=== PATIENT | female | born 1995 | race Caucasian/White ===

== ENCOUNTER 2016-05-14 19:53 | Emergency (ER) | payer OTHER ==
[2016-05-14 20:06] VITALS: RESP 18
[2016-05-14] MEDS ORDERED: ONDANSETRON 4 MG/2 ML VIAL IVP STA (20:13)
[2016-05-14] MEDS ORDERED: SODIUM CHLORIDE 0.9% 1,000 ML IV ONE (20:13)
[2016-05-14] MEDS ORDERED: KETOROLAC 30 MG/ML 1 ML VIAL IVP STA (20:13)
--- NOTE | 2016-05-14 20:16 | ED ---
General Adult HPI - General Chief complaint: Abdominal Pain Stated complaint: LUQ Pain x3 days Time Seen by Provider: 05/14/16 20:02 Source: patient, RN notes reviewed Mode of arrival: ambulatory Limitations: no limitations - History of Present Illness Initial comments: 20-year-old female presenting for left upper quadrant abdominal pain. Patient states that she has had pain for the past 3 days. She states she also has nausea vomiting and diarrhea. She denies any fevers or chills. She recently did have a Mirena control IUD placed. She states this is not an issue for her. She denies any vaginal discharge or bleeding. She denies any lower abdominal pain. She denies any significant medical history. - Related Data Previous Rx's Medication Instructions Recorded Ibuprofen [Motrin] 800 mg PO Q8HR PRN #21 tab 05/14/16 Ondansetron Odt [Zofran Odt] 4 mg PO Q8HR PRN #12 tab 05/14/16 Ranitidine HCl [Zantac] 150 mg PO BID #14 tab 05/14/16 Allergies Allergy/AdvReac Type Severity Reaction Status Date / Time peanut [Peanut Butter] Allergy Anaphylaxis Verified 05/14/16 20:22 peanut oil Allergy Rash/Hives Verified 05/14/16 20:22 tree nut [Nut] Allergy Rash/Hives Verified 05/14/16 20:22 atomoxetine HCl AdvReac Headache Verified 05/14/16 20:22 [From Ray] Review of Systems ROS Statement: Those systems with pertinent positive or pertinent negative responses have been documented in the HPI. Constitutional: No fevers. No chills. No change in appetite. No unexpected weight loss. Eyes: No visual changes. No eye pain. No sensitivity to light. HENT: No sinus pressure. No ear pain. No hearing changes. No epistaxis. No sore throat. Respiratory: No cough. No SOB. No wheezing. Cardiovascular: No chest pain. No palpitations. No lower extremity edema. Abdomen: Positive abdominal pain. Positive nausea and vomiting and diarrhea. Genitourinary: No dysuria. No hematuria. No difficulty urinating. No flank pain. Musculoskeletal: No injury. No back pain. No myalgias. Skin: No rash. No lesions. No lacerations. Neuro: No gross strength deficits. No LOC. No seizures. No headache. Psych: No confusion. No memory changes. No anxiety/depression. ROS Other: All systems not noted in ROS Statement are negative. Past Medical History Past Medical History: Asthma Additional Past Medical History / Comment(s): Concussion, Migraines, anemia, enlarged spleen History of Any Multi-Drug Resistant Organisms: None Reported Past Surgical History: Adenoidectomy, Tonsillectomy Additional Past Surgical History / Comment(s): Cyst out of left shoulder Past Psychological History: Anxiety, Depression Smoking Status: Former smoker Past Alcohol Use History: None Reported Past Drug Use History: None Reported General Exam - General Exam Comments Initial Comments: General: Awake and Alert. No acute distress. Does not appear acutely ill. Obese. Eyes: SAILAJA, EOM intact. No nystagmus. No scleral icterus. HENT: Atraumatic, normocephalic. Mucous membranes moist. Trachea midline. Neck: The neck is supple, there is no tenderness or JVD. Cardiovascular: Regular rate and rhythm. No murmur, rub, or gallop is appreciated. Distal pulses intact. Respiratory: Lungs are clear to auscultation bilaterally. No wheezes, rales, rhonchi. No respiratory distress. Gastrointestinal: Soft, mild left upper quadrant tenderness. No rebound or guarding. Non-distended. No masses or organomegaly noted. No CVA tenderness. Musculoskeletal: No tenderness. Normal ROM. No gross deformity. No strength deficits. Neurological: A&Ox3. CN II-XII grossly intact, There are no obvious motor or sensory deficits. Coordination appears grossly intact. Speech is normal. Skin: Skin is warm and dry and no rashes or lesions are noted. Psychiatric: Cooperative, appropriate mood & affect, normal judgment. Limitations: no limitations Course Vital Signs 05/14/16 05/14/16 20:05 21:28 Temperature 98.2 F 98.1 F Pulse Rate 86 96 Respiratory 18 18 Rate Blood Pressure 147/63 111/62 O2 Sat by Pulse 99 100 Oximetry Medical Decision Making - Medical Decision Making 20-year-old female presenting for left upper quadrant abdominal pain and N/V/D. Abdominal exam with left upper quadrant tenderness but without rebound or guarding or evidence of acute peritonitis. Given her active nausea vomiting diarrhea symptoms this is likely consistent with gastroenteritis. Patient was given medications for pain and nausea and IV fluids with improvement of her symptoms on reevaluation. Lab work was performed was grossly stable findings. She does state history of anemia. UA without convincing evidence of infection setting of significant squamous contamination and no active dysuria. Lower suspicion for acute intra-abdominal process at this time, and does not appear to require any imaging studies at this time. Discussed symptomatic management and staying well-hydrated with patient. Discussed concerning signs and symptoms requiring immediate return to the ED. Discussed close follow-up with PCP for reevaluation for her abdominal pain. Patient is agreeable with plan of discharge home. - Lab Data Result diagrams: 05/14/16 20:36 05/14/16 20:36 Lab Results 05/14/16 05/14/16 05/14/16 Range/Units 20:36 20:36 20:36 WBC 7.3 (4.0-11.0) k/uL RBC 6.09 H (3.80-5.40) m/uL Hgb 11.1 L (11.4-16.0) gm/dL Hct 39.0 (34.0-46.0) % MCV 63.9 L (80.0-100.0) fL MCH 18.3 L (25.0-35.0) pg MCHC 28.6 L (31.0-37.0) g/dL RDW 15.7 H (11.5-15.5) % Plt Count 238 (150-450) k/uL Neutrophils % 60 % Lymphocytes % 28 % Monocytes % 8 % Eosinophils % 2 % Basophils % 1 % Neutrophils # 4.4 (1.3-7.7) k/uL Lymphocytes # 2.0 (1.0-4.8) k/uL Monocytes # 0.6 (0-1.0) k/uL Eosinophils # 0.1 (0-0.7) k/uL Basophils # 0.0 (0-0.2) k/uL Hypochromasia Marked Microcytosis Marked Sodium 142 (137-145) mmol/L Potassium 3.9 (3.5-5.1) mmol/L Chloride 107 (98-107) mmol/L Carbon Dioxide 25 (22-30) mmol/L Anion Gap 10 mmol/L BUN 7 (7-17) mg/dL Creatinine 0.56 (0.52-1.04) mg/dL Est GFR (MDRD) Af Amer >60 (>60 ml/min/1.73 sqM) Est GFR (MDRD) Non-Af >60 (>60 ml/min/1.73 sqM) Glucose 87 (74-99) mg/dL Calcium 9.5 (8.4-10.2) mg/dL Total Bilirubin 0.5 (0.2-1.3) mg/dL AST 16 (14-36) U/L ALT 26 (9-52) U/L Alkaline Phosphatase 70 (38-126) U/L Total Protein 7.0 (6.3-8.2) g/dL Albumin 4.3 (3.5-5.0) g/dL Lipase 105 (23-300) U/L Urine Color Urine Appearance (Clear) Urine pH (5.0-8.0) Ur Specific Sheldahl (1.001-1.035) Urine Protein (Negative) Urine Glucose (UA) (Negative) Urine Ketones (Negative) Urine Blood (Negative) Urine Nitrate (Negative) Urine Bilirubin (Negative) Urine Urobilinogen (<2.0) mg/dL Ur Leukocyte Esterase (Negative) Urine WBC (0-5) /hpf Urine WBC Clumps (None) /hpf Ur Squamous Epith Cells (0-4) /hpf Amorphous Sediment (None) /hpf Urine Bacteria (None) /hpf Urine Mucus (None) /hpf Urine HCG, Qual Not Detected (Not Detectd) 05/14/16 Range/Units 20:36 WBC (4.0-11.0) k/uL RBC (3.80-5.40) m/uL Hgb (11.4-16.0) gm/dL Hct (34.0-46.0) % MCV (80.0-100.0) fL MCH (25.0-35.0) pg MCHC (31.0-37.0) g/dL RDW (11.5-15.5) % Plt Count (150-450) k/uL Neutrophils % % Lymphocytes % % Monocytes % % Eosinophils % % Basophils % % Neutrophils # (1.3-7.7) k/uL Lymphocytes # (1.0-4.8) k/uL Monocytes # (0-1.0) k/uL Eosinophils # (0-0.7) k/uL Basophils # (0-0.2) k/uL Hypochromasia Microcytosis Sodium (137-145) mmol/L Potassium (3.5-5.1) mmol/L Chloride (98-107) mmol/L Carbon Dioxide (22-30) mmol/L Anion Gap mmol/L BUN (7-17) mg/dL Creatinine (0.52-1.04) mg/dL Est GFR (MDRD) Af Amer (>60 ml/min/1.73 sqM) Est GFR (MDRD) Non-Af (>60 ml/min/1.73 sqM) Glucose (74-99) mg/dL Calcium (8.4-10.2) mg/dL Total Bilirubin (0.2-1.3) mg/dL AST (14-36) U/L ALT (9-52) U/L Alkaline Phosphatase (38-126) U/L Total Protein (6.3-8.2) g/dL Albumin (3.5-5.0) g/dL Lipase (23-300) U/L Urine Color Yellow Urine Appearance Cloudy H (Clear) Urine pH 7.5 (5.0-8.0) Ur Specific [place] 1.010 (1.001-1.035) Urine Protein Negative (Negative) Urine Glucose (UA) Negative (Negative) Urine Ketones Negative (Negative) Urine Blood Negative (Negative) Urine Nitrate Negative (Negative) Urine Bilirubin Negative (Negative) Urine Urobilinogen 2.0 (<2.0) mg/dL Ur Leukocyte Esterase Negative (Negative) Urine WBC 5 (0-5) /hpf Urine WBC Clumps Few H (None) /hpf Ur Squamous Epith Cells 26 H (0-4) /hpf Amorphous Sediment Rare H (None) /hpf Urine Bacteria Many H (None) /hpf Urine Mucus Rare H (None) /hpf Urine HCG, Qual (Not Detectd) Disposition Clinical Impression: Nonspecific abdominal pain, Nausea and vomiting Disposition: HOME SELF-CARE Condition: Stable Instructions: Abdominal Pain (ED), Gastroenteritis (ED) Prescriptions: Ibuprofen [Motrin] 800 mg PO Q8HR PRN #21 tab PRN Reason: Pain Ondansetron Odt [Zofran Odt] 4 mg PO Q8HR PRN #12 tab PRN Reason: Nausea Ranitidine HCl [Zantac] 150 mg PO BID #14 tab Referrals: Willam Ibarra MD [Primary Care Provider] - 1-2 days Time of Disposition: 21:19
[2016-05-14 20:50] LABS: Basophils % (A) 1 %; CH 18.9; CHCM 29.7; Eosinophils # (A) 0.1 k/uL (0-0.7); Eosinophils % (A) 2 %; HDW 3.18; HGB 11.1 gm/dL (11.4-16.0); Hypochromasia Marked; Luc # (Auto) 0.15; Luc % (Auto) 2; Lymphocytes % (A) 28 %; MCH 18.3 pg (25.0-35.0); MCHC 28.6 g/dL (31.0-37.0); MCV 63.9 fL (80.0-100.0); Microcytosis Marked; Monocytes # (A) 0.6 k/uL (0-1.0); Monocytes % (A) 8 %; Neutrophils # (A) 4.4 k/uL (1.3-7.7); Neutrophils % (A) 60 %; RBC 6.09 m/uL (3.80-5.40); RBC Fragment Flag Slight; RDW 15.7 % (11.5-15.5); WBC 7.3 k/uL (4.0-11.0)
[2016-05-14 20:56] LABS: Amorphous Sediment,Urine Rare /hpf; Appearance,Urine Cloudy (Clear); Bacteria,Urine Many /hpf; Bilirubin,Urine Negative (Negative); Glucose,Urine (UA) Negative (Negative); Ketones,Urine Negative (Negative); Leukocyte Esterase,Urine Negative (Negative); Mucus,Urine Rare /hpf; Nitrite,Urine Negative (Negative); PH, Urine 7.5 (5.0-8.0); Particle Count 19492; Protein,Urine Negative (Negative); Squamous Epithelial Cell,Urine 26 /hpf (0-4); UA Billing (MACRO vs. MICRO) MICRO; WBC,Urine 5 /hpf (0-5)
[2016-05-14 20:58] LABS: ALT 26 U/L (9-52); AST 16 U/L (14-36); Alkaline Phosphatase 70 U/L (38-126); Anion Gap 10 mmol/L; Blood Urea Nitrogen 7 mg/dL (7-17); Calcium 9.5 mg/dL (8.4-10.2); Carbon Dioxide 25 mmol/L (22-30); Chloride 107 mmol/L (98-107); Glucose 87 mg/dL (74-99); Non-African American GFR(MDRD) >60 (>60 ml/min/1.73 sqM); Potassium 3.9 mmol/L (3.5-5.1); Sodium 142 mmol/L (137-145); Total Bilirubin 0.5 mg/dL (0.2-1.3)
[2016-05-14 21:32] VITALS: BP 111/62; PULSE 96; TEMP 98.1
== END 2016-05-14 21:28 | disposition home or self-care (01) ==
LOC: EC 19:53
DX: R11.2 Nausea with vomiting, unspecified (principal); R19.7 Diarrhea, unspecified; Z88.8 Allergy status to other drugs, medicaments and biological substances; Z87.891 Personal history of nicotine dependence; Z91.018 Allergy to other foods; Z91.010 Allergy to peanuts
CPT/HCPCS: 99283; 96374; 96375; 96361; 36415; 80053; 83690; 85025; 81001; 81025; J2405; J1885

== ENCOUNTER 2016-05-30 16:52 | Emergency (ER) | payer OTHER ==
[2016-05-30 17:06] VITALS: BP 126/82; PULSE 18; RESP 16; TEMP 99
--- NOTE | 2016-05-30 17:16 | ED ---
Headache HPI - General Chief Complaint: Headache Stated Complaint: Headache Time Seen by Provider: 05/30/16 17:09 Source: RN notes reviewed Mode of arrival: ambulatory Limitations: no limitations - History of Present Illness Initial Comments: Patient is a 20-year-old female with a chief complaint of a migraine headache for the past 3 weeks. Patient reports she's taken multiple medications including Excedrin, Tylenol and Motrin however does not help. Patient reports that taken anything for migraine in the past 24 hours. Patient reports that she has not taking pills. Patient states that she did have some lightheadedness today and a blurriness to her vision. Patient reports that her vision became blurry for only a few seconds and then stop. Patient reports that her headache is worse with bright lights and loud noises. Patient states that she does not take any chronic migraine medications at this time. She denies any neurological deficits, peripheral paresthesias, or altered mental status. She reports that she did feel little nauseated. She denies any vomiting. Patient denies any recent fever, chills, shortness of breath, chest pain, back pain, abdominal pain, numbness or tingling, dysuria or hematuria, constipation or diarrhea,or visual changes, or any other current symptoms - Related Data Previous Rx's Medication Instructions Recorded Ibuprofen [Motrin] 800 mg PO Q8HR PRN #21 tab 05/14/16 Ondansetron Odt [Zofran Odt] 4 mg PO Q8HR PRN #12 tab 05/14/16 Ranitidine HCl [Zantac] 150 mg PO BID #14 tab 05/14/16 Butalb/Acetaminophen/Caffeine 1 - 2 cap PO Q4HR #10 cap 05/30/16 [Fioricet 50-300-40 mg Capsule] Allergies Allergy/AdvReac Type Severity Reaction Status Date / Time peanut [Peanut Butter] Allergy Anaphylaxis Verified 05/14/16 20:22 peanut oil Allergy Rash/Hives Verified 05/14/16 20:22 tree nut [Nut] Allergy Rash/Hives Verified 05/14/16 20:22 atomoxetine HCl AdvReac Headache Verified 05/14/16 20:22 [From Strattera] Review of Systems ROS Statement: Those systems with pertinent positive or pertinent negative responses have been documented in the HPI. ROS Other: All systems not noted in ROS Statement are negative. Past Medical History Past Medical History: Asthma Additional Past Medical History / Comment(s): Concussion, Migraines, anemia, enlarged spleen History of Any Multi-Drug Resistant Organisms: None Reported Past Surgical History: Adenoidectomy, Tonsillectomy Additional Past Surgical History / Comment(s): Cyst out of left shoulder Past Psychological History: Anxiety, Depression Smoking Status: Former smoker Past Alcohol Use History: None Reported Past Drug Use History: None Reported General Exam - General Exam Comments Initial Comments: Is a pleasant 20-year-old female. She does not appear to be in any acute distress. Limitations: no limitations General appearance: alert, in no apparent distress Head exam: Present: atraumatic, normocephalic, normal inspection Eye exam: Present: normal appearance, PERRL, EOMI. Absent: scleral icterus, conjunctival injection, periorbital swelling ENT exam: Present: normal exam, mucous membranes moist Neck exam: Present: normal inspection. Absent: tenderness, meningismus, lymphadenopathy Respiratory exam: Present: normal lung sounds bilaterally. Absent: respiratory distress, wheezes, rales, rhonchi, stridor Cardiovascular Exam: Present: regular rate, normal rhythm, normal heart sounds. Absent: systolic murmur, diastolic murmur, rubs, gallop, clicks GI/Abdominal exam: Present: soft, normal bowel sounds. Absent: distended, tenderness, guarding, rebound, rigid Extremities exam: Present: normal inspection, full ROM, normal capillary refill. Absent: tenderness, pedal edema, joint swelling, calf tenderness Back exam: Present: normal inspection Neurological exam: Present: alert, oriented X3, CN II-XII intact Expanded Patient oriented to: Present: person, place, time Speech: Present: fluid speech Cranial nerves: EOM's Intact: Normal, Gag Reflex: Normal, Tongue Deviation: Normal Cerebellar function: Finger to Nose: Normal Upper motor neuron: Juan Miguel Neglect: Normal Sensory exam: Upper Extremity Light Touch: Normal, Lower Extremity Light Touch: Normal Motor strength exam: RUE: 5, LUE: 5, RLE: 5, LLE: 5 Eye Response: (4) open spontaneously Motor Response: (6) obeys commands Verbal Response: (5) oriented Psychiatric exam: Present: normal affect, normal mood Skin exam: Present: warm, dry, intact, normal color. Absent: rash Course Vital Signs 05/30/16 17:03 Temperature 99.0 F Pulse Rate 18 L Respiratory 16 Rate Blood Pressure 126/82 O2 Sat by Pulse 99 Oximetry Medical Decision Making - Medical Decision Making Patient is a 20-year-old female with a chief complaint of a headache for approximately 3 weeks. She reports that will come and go and she's taking her Motrin, Tylenol and Excedrin. Patient reports that she has history of chronic migraines. Patient is alert and oriented has no neurological deficits this time. Patient was given IM Toradol, Benadryl and by mouth Zofran in Antivert. Patient advised to follow-up with primary care provider. Patient understands treatment plan will comply. Return parameters were discussed. Patient has no neurological deficits at this time and no further studies or imaging is necessary. Patient reports that she has relief after the IM medications. Patient understands return parameters. Disposition Clinical Impression: Headache Disposition: HOME SELF-CARE Condition: Good Instructions: Acute Headache (ED) Additional Instructions: Patient started to remain hydrated. Take migraine medication as directed. Rest , and return to the [facility] if any alarming signs or symptoms occur. Prescriptions: Butalb/Acetaminophen/Caffeine [Fioricet 50-300-40 mg Capsule] 1 - 2 cap PO Q4HR #10 cap Referrals: Willam Ibarra MD [Primary Care Provider] - 1-2 days Time of Disposition: 17:35
[2016-05-30] MEDS ORDERED: KETOROLAC 60 MG/2 ML VIAL IM STA (17:21)
[2016-05-30] MEDS ORDERED: ONDANSETRON 4 MG ODT STARTER PACK 2 TAB BTL PO STA (17:22)
[2016-05-30] MEDS ORDERED: diphenhydrAMINE 50 MG/ML 1 ML VIAL IM STA (17:22)
[2016-05-30] MEDS ORDERED: MECLIZINE 12.5 MG TAB PO STA (17:23)
== END 2016-05-30 17:38 | disposition home or self-care (01) ==
LOC: EC 16:52
DX: R51 Headache (principal); Z79.899 Other long term (current) drug therapy; Z88.8 Allergy status to other drugs, medicaments and biological substances; Z87.891 Personal history of nicotine dependence
CPT/HCPCS: 99283; 96372; J1200; J1885; S0119

== ENCOUNTER 2016-10-19 02:46 | Emergency (ER) | payer OTHER ==
[2016-10-19 02:53] VITALS: TEMP 97.9
[2016-10-19] MEDS ORDERED: predniSONE 20 MG TAB PO STA (03:09)
[2016-10-19] MEDS ORDERED: diphenhydrAMINE 50 MG/ML 1 ML VIAL IVP STA (03:09)
[2016-10-19] MEDS ORDERED: FAMOTIDINE 20 MG/2 ML VIAL IV STA (03:09)
--- NOTE | 2016-10-19 04:04 | ED ---
Allergic Reaction HPI - General Chief complaint: Allergic Reaction Stated complaint: Possible allergic reaction Time Seen by Provider: 10/19/16 03:05 Source: patient Mode of arrival: ambulatory Limitations: no limitations - History of Present Illness Initial Comments: This patient is a 20-year-old woman who presents with the feeling that she is having an ALLERGIC reaction. Patient states that she is having some itching to the face and throat area. She states that she has peanut ALLERGY and although she did not knowingly consume any peanut or not products, she is concerned she may been exposed by someone in her household. She did take some Benadryl. The patient is not having cough, wheezing, tongue or lip swelling. No rash. MD Complaint: allergic reaction -: hour(s) Exposure: unknown Symptoms: itching, hoarseness Severity: mild Treatment Prior to Arrival: benadryl Previous Allergy History: other (Urticaria) - Related Data Previous Rx's Medication Instructions Recorded Famotidine [Pepcid] 20 mg PO BID #14 tablet 10/19/16 predniSONE 60 mg PO DAILY #30 tab 10/19/16 Allergies Allergy/AdvReac Type Severity Reaction Status Date / Time peanut [Peanut Butter] Allergy Anaphylaxis Verified 05/14/16 20:22 peanut oil Allergy Rash/Hives Verified 05/14/16 20:22 tree nut [Nut] Allergy Rash/Hives Verified 05/14/16 20:22 atomoxetine HCl AdvReac Headache Verified 05/14/16 20:22 [From Strattera] Review of Systems ROS Statement: Those systems with pertinent positive or pertinent negative responses have been documented in the HPI. ROS Other: All systems not noted in ROS Statement are negative. Constitutional: Denies: fever ENT: Denies: throat pain, congestion Respiratory: Denies: cough, dyspnea, wheezes, stridor Cardiovascular: Denies: chest pain, syncope Gastrointestinal: Denies: abdominal pain, vomiting, diarrhea Skin: Denies: rash Neurological: Denies: headache, weakness, numbness Psychiatric: Reports: anxiety Past Medical History Past Medical History: Asthma Additional Past Medical History / Comment(s): Concussion, Migraines, anemia, enlarged spleen History of Any Multi-Drug Resistant Organisms: None Reported Past Surgical History: Adenoidectomy, Tonsillectomy Additional Past Surgical History / Comment(s): Cyst out of left shoulder Past Psychological History: Anxiety, Depression Smoking Status: Former smoker Past Alcohol Use History: None Reported Past Drug Use History: None Reported General Exam Limitations: no limitations General appearance: alert, in no apparent distress Head exam: Present: atraumatic, normocephalic ENT exam: Present: normal oropharynx, mucous membranes moist Neck exam: Present: normal inspection Respiratory exam: Present: normal lung sounds bilaterally. Absent: respiratory distress, wheezes, rales, rhonchi, stridor Cardiovascular Exam: Present: regular rate, normal rhythm, normal heart sounds. Absent: systolic murmur, diastolic murmur, rubs, gallop GI/Abdominal exam: Present: soft. Absent: distended, tenderness, guarding, rebound Extremities exam: Present: normal inspection, normal capillary refill. Absent: pedal edema, calf tenderness Neurological exam: Present: alert Skin exam: Present: warm, dry, intact, normal color. Absent: rash Course Vital Signs 10/19/16 10/19/16 02:50 04:11 Temperature 97.9 F Pulse Rate 85 70 Respiratory 20 16 Rate Blood Pressure 129/91 106/59 O2 Sat by Pulse 100 Oximetry Medical Decision Making - Medical Decision Making Patient is 20-year-old woman with history of peanut ALLERGY presenting with some itching. She was given antihistamines and steroid and has had no further progression of symptoms and is feeling better and requesting discharge. Discussed return parameters and appropriate follow-up. Disposition Clinical Impression: Allergic reaction Disposition: HOME SELF-CARE Condition: Good Instructions: General Allergic Reaction (ED) Prescriptions: Famotidine [Pepcid] 20 mg PO BID #14 tablet predniSONE 60 mg PO DAILY #30 tab Referrals: Willam Iabrra MD [Primary Care Provider] - 1-2 days
[2016-10-19 04:12] VITALS: BP 106/59; PULSE 70; RESP 16
== END 2016-10-19 04:11 | disposition home or self-care (01) ==
LOC: EC 02:46
DX: T78.49XA Other allergy, initial encounter (principal); F41.9 Anxiety disorder, unspecified; Z88.8 Allergy status to other drugs, medicaments and biological substances; Z91.010 Allergy to peanuts; Z91.018 Allergy to other foods; Z87.891 Personal history of nicotine dependence
CPT/HCPCS: 99283; 96374; 96375; J1200; J7512

== ENCOUNTER 2016-10-23 20:23 | Emergency (ER) | payer OTHER ==
[2016-10-23] MEDS ORDERED: methylPREDNISolone SOD SUCCI 125 MG/2 ML VIAL IV STA (20:36)
[2016-10-23] MEDS ORDERED: diphenhydrAMINE 50 MG/ML 1 ML VIAL IVP STA (20:36)
[2016-10-23] MEDS ORDERED: FAMOTIDINE 20 MG/2 ML VIAL IV STA (20:36)
[2016-10-23] MEDS ORDERED: SODIUM CHLORIDE 0.9% 1,000 ML IV ONE (20:36)
--- NOTE | 2016-10-23 20:42 | ED ---
Allergic Reaction HPI - General Chief complaint: Allergic Reaction Stated complaint: allergic reaction/peanuts Source: patient Mode of arrival: ambulatory Limitations: no limitations - History of Present Illness Initial Comments: Patient is a 20 old female presents for evaluation for rash to her left upper chest tongue itching and lip itching. Past medical history as below. Patient has a severe ALLERGY to peanuts. Her friend went into [facility] which apparently has peanuts everywhere. She came in contact with some of the peanut shells and then touched the patient's [place]. The patient then touched her left upper chest and face and shortly after developed her symptoms. Her symptoms have progressively been worsening over the last 45 minutes. She does not feel like her throat is closing up. She is not wheezing at this time. She states that she has some mild nausea. She has never been intubated for an ALLERGIC reaction before in the past. Otherwise denies fever, chills, headache and changes of vision, URI symptoms, chest pain, cough, vomiting, diarrhea, pain or burning with urination. - Related Data Previous Rx's Medication Instructions Recorded EPINEPHrine (Auto Inject) [Epipen] 0.3 mg IM ONCE PRN #1 syringe 10/23/16 Allergies Allergy/AdvReac Type Severity Reaction Status Date / Time peanut [Peanut Butter] Allergy Anaphylaxis Verified 10/23/16 21:20 peanut oil Allergy Rash/Hives Verified 10/23/16 21:20 tree nut [Nut] Allergy Rash/Hives Verified 10/23/16 21:20 atomoxetine HCl AdvReac Headache Verified 10/23/16 21:20 [facility] Review of Systems ROS Statement: Those systems with pertinent positive or pertinent negative responses have been documented in the HPI. ROS Other: All systems not noted in ROS Statement are negative. Past Medical History Past Medical History: Asthma Additional Past Medical History / Comment(s): Concussion, Migraines, anemia, enlarged spleen History of Any Multi-Drug Resistant Organisms: None Reported Past Surgical History: Adenoidectomy, Tonsillectomy Additional Past Surgical History / Comment(s): Cyst out of left shoulder Past Psychological History: Anxiety, Depression Smoking Status: Former smoker Past Alcohol Use History: None Reported Past Drug Use History: None Reported General Exam Limitations: no limitations General appearance: alert, in no apparent distress, other Head exam: Present: atraumatic, normocephalic, normal inspection Eye exam: Present: normal appearance, PERRL, EOMI. Absent: scleral icterus, conjunctival injection, periorbital swelling ENT exam: Present: normal exam, mucous membranes moist, other (Posterior oropharynx is clear. No swelling to the tongue or lips. ) Neck exam: Present: normal inspection, other (No cervical lymphadenopathy). Absent: tenderness, meningismus, lymphadenopathy Respiratory exam: Present: normal lung sounds bilaterally, other (Clear bilaterally without wheezes rales or rhonchi. No tachypnea. No hypoxia. No conversational dyspnea.). Absent: respiratory distress, wheezes, rales, rhonchi , stridor Cardiovascular Exam: Present: regular rate, normal rhythm, normal heart sounds. Absent: systolic murmur, diastolic murmur, rubs, gallop, clicks GI/Abdominal exam: Present: soft, normal bowel sounds. Absent: distended, tenderness, guarding, rebound, rigid Extremities exam: Present: normal inspection, full ROM, normal capillary refill. Absent: tenderness, pedal edema, joint swelling, calf tenderness Back exam: Present: normal inspection Neurological exam: Present: alert, oriented X3, CN II-XII intact Psychiatric exam: Present: normal affect, normal mood Skin exam: Present: warm, dry, intact, normal color, urticaria, other (Mild uric area to the left upper chest and left neck.). Absent: rash Course Vital Signs 10/23/16 10/23/16 20:24 21:04 Temperature 98.1 F Pulse Rate 101 H 95 Respiratory 16 20 Rate Blood Pressure 132/77 131/74 O2 Sat by Pulse 100 100 Oximetry Medical Decision Making - Medical Decision Making Patient is a 20-year-old female who came in contact with some peanut oil and believes that she is having ALLERGIC reaction. She has urticaria to the left upper chest. Airway is intact. We'll order Benadryl, famotidine, Solu-Medrol, IV fluids. 2144: Reevaluated the patient. Urticaria has resolved. She states that she has some mild itching to her face. Feels better. Will reassess after completion of fluid bolus. 2229: Reevaluated the patient. She states that she is much improved. No longer having any symptoms. Asked patient if she has any EpiPen at home and she stated that her EpiPen's were recalled. We'll discharge home with 3 EpiPen' s (1 for home, one for work, one for travel). Instructed to avoid peanuts. Discussed signs and symptoms on when to return to the emergency department for further evaluation. Comfortable discharge home and will follow-up with her primary care physician as needed. - Lab Data Lab Results 10/23/16 Range/Units 21:57 Urine HCG, Qual Not Detected (Not Detectd) Disposition Clinical Impression: Allergic reaction Disposition: HOME SELF-CARE Condition: Good Instructions: Food Allergy (ED) Prescriptions: EPINEPHrine (Auto Inject) [Epipen] 0.3 mg IM ONCE PRN #1 syringe PRN Reason: Anaphylaxis Referrals: Willam Ibarra MD [Primary Care Provider] - 1-2 days
[2016-10-23 21:05] VITALS: PULSE 95; RESP 20
[2016-10-23 22:44] VITALS: BP 115/79; TEMP 98.2
== END 2016-10-23 22:51 | disposition home or self-care (01) ==
LOC: EC 20:23
DX: L50.0 Allergic urticaria (principal); Z87.891 Personal history of nicotine dependence; Z91.018 Allergy to other foods; Z91.010 Allergy to peanuts; Z88.8 Allergy status to other drugs, medicaments and biological substances
CPT/HCPCS: 81025; 99283; 96374; 96375 ×2; 96361; J1200; J2930

== ENCOUNTER 2016-11-08 20:29 | Emergency (ER) | payer OTHER ==
[2016-11-08 20:37] VITALS: BP 128/78; PULSE 99; RESP 18; TEMP 98.9
[2016-11-08] MEDS ORDERED: BUTALB/APAP/CAFF 50-325-40MG TAB PO STA (21:08)
[2016-11-08] MEDS ORDERED: ONDANSETRON 4 MG ODT STARTER PACK 2 TAB BTL PO STA (21:09)
--- NOTE | 2016-11-08 21:14 | ED ---
General Adult HPI - General Chief complaint: Headache Stated complaint: headache x 10days Time Seen by Provider: 11/08/16 20:50 Source: patient, RN notes reviewed, old records reviewed Mode of arrival: ambulatory Limitations: no limitations - History of Present Illness Initial comments: Chief complaint and history of present illness a 21-year-old female who has frequent recurrent migraine type headaches. She has seen neurologists in the past and has been on Flexeril and has had steroid shots in her neck. Patient reports having had an injury when she was 14 when she fell off a jungle gym. The patient was recently seen at [facility] given her tramadol and Reglan. Patient reports she has some tingling to her left arm. Headache is on the left side of her head. No photophobia. Mild nausea no vomiting. Patient does not appear uncomfortable. - Related Data Previous Rx's Medication Instructions Recorded EPINEPHrine (Auto Inject) [Epipen] 0.3 mg IM ONCE PRN #1 syringe 10/23/16 Butalb/Acetaminophen/Caffeine 1 cap PO Q4HR #10 cap 11/08/16 [Fioricet 50-300-40 mg Capsule] Ondansetron Odt [Zofran Odt] 4 mg PO Q8HR PRN #10 tab 11/08/16 Allergies Allergy/AdvReac Type Severity Reaction Status Date / Time peanut [Peanut Butter] Allergy Anaphylaxis Verified 11/08/16 20:37 peanut oil Allergy Rash/Hives Verified 11/08/16 20:37 tree nut [Nut] Allergy Rash/Hives Verified 11/08/16 20:37 atomoxetine HCl AdvReac Headache Verified 11/08/16 20:37 [From [facility]] Review of Systems ROS Statement: Those systems with pertinent positive or pertinent negative responses have been documented in the HPI. review of systems no visual acuity changes left-sided headache ongoing for several days. This is common for her headaches that she is to have headaches the last week at a time. Patient's not complaining of any meningismus or stiff neck. No chest pain shortness breath GI/ problems neuro deficits none except for a sensation of some tingling in her left arm. no drift able to open and close her fingers with good dexterity. Neurovascular appears intact. All systems are reviewed. Past medical problems asthmaSports induced. Concussion as noted above. Frequent migraines. The patient surgeries tonsils, adenoids and a cyst on the left shoulder. Family history mother had breast cancer. Patient has ALLERGIES to peanuts. Tree nuts and Strattera. Patient denies smoking drinks alcohol occasionally socially. ROS Other: All systems not noted in ROS Statement are negative. Past Medical History Past Medical History: Asthma Additional Past Medical History / Comment(s): Concussion, Migraines, anemia, enlarged spleen History of Any Multi-Drug Resistant Organisms: None Reported Past Surgical History: Adenoidectomy, Tonsillectomy Additional Past Surgical History / Comment(s): Cyst out of left shoulder Past Psychological History: Anxiety, Depression Smoking Status: Former smoker Past Alcohol Use History: None Reported Past Drug Use History: None Reported General Exam - General Exam Comments Initial Comments: General: The patient is awake and alert, in no distress, and does not appear acutely ill. does not appear acutely uncomfortable. Reports she has a left-sided headache ongoing for several days not a week. Mild discomfort or tingling to her left arm with full range of motion. Vital signs show temp 98.9 pulse 99 respiratory rate 18 pulse ox 90% room air is 98/78. Eye: Pupils are equal, round and reactive to light, extra-ocular movements are intact ; there is normal conjunctiva bilaterally. No signs of icterus. Ears, nose, mouth and throat: There are moist mucous membranes and no oral lesions. Neck: The neck is supple, there is no tenderness , no anterior cervical lymphadenopathy, no meningismus no stiff neck. Cardiovascular: There is a regular rate and rhythm. No murmur, rub or gallop is appreciated. Respiratory: Lungs are clear to auscultation, respirations are non-labored, breath sounds are equal. No wheezes, stridor, rales, or rhonchi. Gastrointestinal: Soft, non-distended, non-tender abdomen without masses or organomegaly noted. There is no rebound or guarding present. No CVA tenderness. Bowel sounds are unremarkable.mild nausea but no vomiting. Back: There is no tenderness to palpation in the midline. There is no obvious deformity. No rashes noted. Musculoskeletal: Normal ROM, no tenderness, There is no pedal edema. There is no calf tenderness or swelling. Sensation intact. Pulses equal bilaterally 2+. Neurological: CN II-XII intact, There are no obvious motor or sensory deficits. Coordination appears grossly intact. Speech is normal.no focal or lateralizing findings. Subjective complaint of some tingling to her left arm but no decrease in function. Skin: Skin is warm and dry and no rashes or lesions are noted. Psychiatric: Cooperative, appropriate mood & affect, normal judgment. no complaint of any anxiety or depression Limitations: no limitations Course Vital Signs 11/08/16 20:34 Temperature 98.9 F Pulse Rate 99 Respiratory 18 Rate Blood Pressure 128/78 O2 Sat by Pulse 98 Oximetry Medical Decision Making - Medical Decision Making medical decision-making. The patient will be given Zofran and Fioricet taken at home. Told to rest relax follow-up with her family physician, as well as her neurologist symptoms persist. Patient be given a prescription for both Zofran and Fioricet. Advised to return emergency room if there are any changes. Disposition Clinical Impression: Headache Disposition: HOME SELF-CARE Condition: Fair Instructions: Acute Headache (ED) Additional Instructions: rest relax use ice pack to use IV or head. Take Fioricet and Zofran for headache and nausea. Follow-up with family physician and your neurologist. Prescriptions: Butalb/Acetaminophen/Caffeine [Fioricet 50-300-40 mg Capsule] 1 cap PO Q4HR #10 cap Ondansetron Odt [Zofran Odt] 4 mg PO Q8HR PRN #10 tab PRN Reason: nausea vomiting Referrals: Willam Ibarra MD [Primary Care Provider] - 1-2 days Time of Disposition: 21:17
== END 2016-11-08 21:34 | disposition home or self-care (01) ==
LOC: EC 20:29
DX: R51 Headache (principal); Z87.891 Personal history of nicotine dependence; Z86.69 Personal history of other diseases of the nervous system and sense organs; Z88.8 Allergy status to other drugs, medicaments and biological substances; Z91.010 Allergy to peanuts; Z91.018 Allergy to other foods
CPT/HCPCS: 99283; S0119

== ENCOUNTER 2017-03-21 21:06 | Emergency (ER) | payer OTHER ==
[2017-03-21] MEDS ORDERED: IPRATROPIUM-ALBUTEROL 3 ML NEB INHALATION STA (21:35)
--- NOTE | 2017-03-21 21:46 | ED ---
General Adult HPI - General Chief complaint: Shortness of Breath Stated complaint: NENO Time Seen by Provider: 03/21/17 21:22 Source: patient Mode of arrival: wheelchair Limitations: no limitations - History of Present Illness Initial comments: Judy 21-year-old female past medical history of asthma and anxiety who presents the emergency department for evaluation of one hour of feeling like she cannot catch her breath. Patient reports that for the past one hour she feels like she can't catch her breath, if she takes a deep breath she feels like doesn't get enough air. She feels like because of this she started breathing very fast and then feeling like she may pass out. She also feels like her heart is beating very fast. Patient denies any chest pain, chest pressure, diaphoresis. She reports that these symptoms are similar to previous episodes of panic attack. However she can't identify any specific social triggers that would've caused her panic attack today. She does believe the symptoms began after walking up a cold which caused her to feel short of breath. Patient is no personal cardiac history, no family history of early cardiac disease or cardiac cath. She has no personal history of T or PE. She has no known family history of coagulation disorders or blood clots. No recent international travel, no recent surgeries, no recent immobilizations. She is otherwise healthy and active 21-year-old female. - Related Data Home Medications Medication Instructions Recorded Confirmed Levonorgestrel [Mirena] 1 implant VAGINAL [id number] 03/21/17 03/21/17 Allergies Allergy/AdvReac Type Severity Reaction Status Date / Time peanut [Peanut Butter] Allergy Anaphylaxis Verified 03/21/17 21:24 peanut oil Allergy Rash/Hives Verified 03/21/17 21:24 tree nut [Nut] Allergy Rash/Hives Verified 03/21/17 21:24 atomoxetine HCl AdvReac Headache Verified 03/21/17 21:24 [From Strattera] Review of Systems ROS Statement: Those systems with pertinent positive or pertinent negative responses have been documented in the HPI. ROS Other: All systems not noted in ROS Statement are negative. Constitutional: Denies: fever, chills ENT: Denies: throat pain Respiratory: Reports: dyspnea, wheezes. Denies: cough Cardiovascular: Reports: palpitations. Denies: chest pain Gastrointestinal: Denies: abdominal pain, nausea, vomiting Genitourinary: Denies: dysuria Musculoskeletal: Denies: back pain Skin: Denies: rash Neurological: Denies: headache Psychiatric: Reports: anxiety Hematological/Lymphatic: Denies: easy bleeding, easy bruising Past Medical History Past Medical History: Asthma Additional Past Medical History / Comment(s): Concussion, Migraines, anemia, enlarged spleen History of Any Multi-Drug Resistant Organisms: None Reported Past Surgical History: Adenoidectomy, Tonsillectomy Additional Past Surgical History / Comment(s): Cyst out of left shoulder Past Psychological History: Anxiety, Depression Smoking Status: Former smoker Past Alcohol Use History: Occasional Past Drug Use History: None Reported General Exam Limitations: no limitations General appearance: alert, in no apparent distress Head exam: Present: atraumatic, normocephalic Eye exam: Present: normal appearance, PERRL ENT exam: Present: normal exam Neck exam: Present: normal inspection Respiratory exam: Present: wheezes. Absent: respiratory distress, rales, rhonchi, stridor, chest wall tenderness, accessory muscle use, decreased breath sounds, prolonged expiratory Cardiovascular Exam: Present: regular rate, normal rhythm, normal heart sounds. Absent: bradycardia, tachycardia, irregular rhythm, systolic murmur, diastolic murmur, rubs, gallop GI/Abdominal exam: Present: soft. Absent: distended Rectal exam: Present: deferred Extremities exam: Present: normal inspection, normal capillary refill. Absent: pedal edema, joint swelling, calf tenderness Back exam: Present: normal inspection Neurological exam: Present: alert, oriented X3 Psychiatric exam: Present: anxious Skin exam: Present: warm, dry Course Vital Signs 03/21/17 03/21/17 03/21/17 21:11 21:50 21:56 Temperature 98.9 F Pulse Rate 76 68 70 Respiratory 20 16 16 Rate Blood Pressure 122/71 O2 Sat by Pulse 98 Oximetry 03/21/17 22:25 Temperature 99.8 F H Pulse Rate 90 Respiratory 18 Rate Blood Pressure 130/71 O2 Sat by Pulse 99 Oximetry Medical Decision Making - Medical Decision Making Patient was seen and evaluated, history was obtained from patient Patient with history of exercise induced asthma and anxiety with 1h of feeling as though she cant catch her breath, breathing fast and lightheaded. She reports this feels similar to previous panic attacks. Considering the patient's history of exercise-induced asthma and exacerbation by the cold air. I will treat the patient with a single DuoNeb treatment. Patient was reevaluated after DuoNeb. She reports that she is feeling much better after relaxing. She does feel able to breathe now. She has no chest pain, the breathing treatment did make her heart feeling was racing for Lorabid vaginal longer feels lightheaded. Signed patient states she feels comfortable being discharged home. All questions pertaining to care were answered the best my ability and patient was discharged home and advised to return should she develop any worsening shortness breath, chest pain or any other concerning symptoms. Disposition Clinical Impression: Palpitations Disposition: HOME SELF-CARE Condition: Good Instructions: Asthma (ED), Bronchospasm (ED) Referrals: None,Stated [Primary Care Provider] - 1-2 days Time of Disposition: 22:34
[2017-03-21 22:26] VITALS: BP 130/71; PULSE 90; RESP 18; TEMP 99.8
== END 2017-03-21 22:43 | disposition home or self-care (01) ==
LOC: EC 21:06
DX: R00.2 Palpitations (principal); R06.02 Shortness of breath; F41.0 Panic disorder [episodic paroxysmal anxiety]; Z87.891 Personal history of nicotine dependence; Z79.3 Long term (current) use of hormonal contraceptives; Z91.010 Allergy to peanuts; Z91.018 Allergy to other foods; Z88.8 Allergy status to other drugs, medicaments and biological substances
CPT/HCPCS: 94640; 99284

== ENCOUNTER 2017-04-01 19:21 | Emergency (ER) | payer OTHER ==
[2017-04-01] MEDS ORDERED: diphenhydrAMINE 50 MG/ML 1 ML VIAL IVP STA (20:39)
[2017-04-01] MEDS ORDERED: KETOROLAC 30 MG/ML 1 ML VIAL IVP STA (20:39)
[2017-04-01] MEDS ORDERED: METOCLOPRAMIDE 5 MG/ML 2 ML VIAL IVP STA (20:39)
[2017-04-01] MEDS ORDERED: SODIUM CHLORIDE 0.9% 500 ML IV STA (20:39)
[2017-04-01] MEDS ORDERED: ORPHENADRINE 30 MG/ML 2 ML VIAL IVP STA (20:40)
[2017-04-01 21:30] LABS: Anisocytosis Slight; Basophils # (A) 0.1 k/uL (0-0.2); Basophils % (A) 1 %; CH 18.8; CHCM 30.2; Eosinophils # (A) 0.2 k/uL (0-0.7); Eosinophils % (A) 2 %; HCT 37.6 % (34.0-46.0); HDW 3.35; HGB 10.9 gm/dL (11.4-16.0); Hypochromasia Marked; Luc # (Auto) 0.11; Luc % (Auto) 1; Lymphocytes # (A) 2.3 k/uL (1.0-4.8); Lymphocytes % (A) 30 %; MCH 18.2 pg (25.0-35.0); MCV 62.7 fL (80.0-100.0); Mean Platelet Volume 6.8; Microcytosis Marked; Monocytes # (A) 0.6 k/uL (0-1.0); Monocytes % (A) 8 %; Neutrophils # (A) 4.6 k/uL (1.3-7.7); Neutrophils % (A) 59 %; RDW 16.7 % (11.5-15.5); WBC 7.8 k/uL (3.8-10.6); WBC (Perox) 7.95
[2017-04-01 21:36] LABS: Amorphous Sediment,Urine Few /hpf; Appearance,Urine Cloudy (Clear); Bilirubin,Urine Negative (Negative); Glucose,Urine (UA) Negative (Negative); Ketones,Urine Negative (Negative); Leukocyte Esterase,Urine Negative (Negative); Nitrite,Urine Negative (Negative); Particle Count 5109; Protein,Urine Negative (Negative); RBC,Urine <1 /hpf (0-5); Specific Gravity,Urine 1.006 (1.001-1.035); Squamous Epithelial Cell,Urine 6 /hpf (0-4); UA Billing (MACRO vs. MICRO) MICRO; WBC,Urine 3 /hpf (0-5)
[2017-04-01] MEDS: ACETAMINOPHEN TAB 500 MG TAB PO STA ×2 (21:42→21:54)
[2017-04-01 21:43] LABS: Anion Gap 11 mmol/L; Blood Urea Nitrogen 10 mg/dL (7-17); Calcium 9.9 mg/dL (8.4-10.2); Carbon Dioxide 23 mmol/L (22-30); Chloride 106 mmol/L (98-107); Glucose 95 mg/dL (74-99); Non-African American GFR(MDRD) >60 (>60 ml/min/1.73 sqM); Potassium 4.1 mmol/L (3.5-5.1); Sodium 140 mmol/L (137-145)
--- NOTE | 2017-04-01 22:36 | ED ---
Headache HPI - General Chief Complaint: Headache Stated Complaint: Headache Time Seen by Provider: 04/01/17 19:59 Source: RN notes reviewed, old records reviewed Mode of arrival: ambulatory Limitations: no limitations - History of Present Illness Initial Comments: Patient is 21-year-old female with history of migraines presents emergency Department with a migraine headache for the past 2 days. She reports she feels nauseated but has no vomiting episodes. She reports that the migraine radiates around her left side of the yazidi down towards her neck. She denies any other complaints at this time. Denies any recent fevers or chills, chest pain, shortness of breath. She reports that she's been taking Motrin with no relief. She reports that she usually gets better after migraine cocktail. His medical history includes anemia, surgical history includes tonsillectomy, surgery, cyst removed from her left shoulder. Patient denies any recent fever , chills, shortness of breath, chest pain, back pain, abdominal pain, nausea vomiting, numbness or tingling, dysuria or hematuria, constipation or diarrhea, or visual changes, or any other current symptoms - Related Data Previous Rx's Medication Instructions Recorded Ferrous Sulfate [Iron] 325 mg PO DAILY #30 tablet 04/01/17 Allergies Allergy/AdvReac Type Severity Reaction Status Date / Time peanut [Peanut Butter] Allergy Anaphylaxis Verified 04/01/17 20:36 peanut oil Allergy Rash/Hives Verified 04/01/17 20:36 tree nut [Nut] Allergy Rash/Hives Verified 04/01/17 20:36 atomoxetine HCl AdvReac Headache Verified 04/01/17 20:36 [From Ray] Review of Systems ROS Statement: Those systems with pertinent positive or pertinent negative responses have been documented in the HPI. ROS Other: All systems not noted in ROS Statement are negative. Past Medical History Past Medical History: Asthma Additional Past Medical History / Comment(s): Concussion, Migraines, anemia, enlarged spleen History of Any Multi-Drug Resistant Organisms: None Reported Past Surgical History: Adenoidectomy, Tonsillectomy Additional Past Surgical History / Comment(s): Cyst out of left shoulder Past Psychological History: Anxiety, Depression Smoking Status: Former smoker Past Alcohol Use History: Occasional Past Drug Use History: None Reported General Exam - General Exam Comments Initial Comments: Well-appearing alert and oriented 4, 21-year-old female. No acute distress. Limitations: no limitations General appearance: alert, in no apparent distress Head exam: Present: atraumatic, normocephalic, normal inspection Eye exam: Present: normal appearance, PERRL, EOMI. Absent: scleral icterus, conjunctival injection, periorbital swelling ENT exam: Present: normal exam, mucous membranes moist Neck exam: Present: normal inspection. Absent: tenderness, meningismus, lymphadenopathy Respiratory exam: Present: normal lung sounds bilaterally. Absent: respiratory distress, wheezes, rales, rhonchi, stridor Cardiovascular Exam: Present: regular rate, normal rhythm, normal heart sounds. Absent: systolic murmur, diastolic murmur, rubs, gallop, clicks GI/Abdominal exam: Present: soft, normal bowel sounds. Absent: distended, tenderness, guarding, rebound, rigid Extremities exam: Present: normal inspection, full ROM, normal capillary refill. Absent: tenderness, pedal edema, joint swelling, calf tenderness Back exam: Present: normal inspection Neurological exam: Present: alert, oriented X3, CN II-XII intact Psychiatric exam: Present: normal affect, normal mood Skin exam: Present: warm, dry, intact, normal color. Absent: rash Course Vital Signs 04/01/17 04/01/17 19:23 22:47 Temperature 98.1 F 98.3 F Pulse Rate 91 95 Respiratory 18 19 Rate Blood Pressure 126/81 112/64 O2 Sat by Pulse 100 95 Oximetry Medical Decision Making - Medical Decision Making 29-year-old female presents emergency Department chief complaint of migraine headache for 2 days. No falls or trauma or any other symptoms. Patient has no neurological deficits at this time. Physical exam is benign. Patient was given IV fluids, migraine cocktail. Lab work obtained. Lab work does show significant anemia, MCV of 62, with increased RDW with, as well as hemoglobin of 10.9. She denies any blood in her stools or any other symptoms. At this time patient will be started on iron supplement, she reports she's been on the past but she has not been taking it regularly as of late. Patient was reevaluated after migraine cocktail reports that her headache is diminished now is a 1 out of 10. She reports she spells good enough to go home. Patient understands that she needs follow-up with her primary care provider regards to the need anemia, as well as migraine headaches. Patient will be discharged at this time with strict return parameters. Patient understands treatment plan. - Lab Data Result diagrams: 04/01/17 21:18 04/01/17 21:18 Lab Results 04/01/17 04/01/17 04/01/17 Range/Units 21:18 21:18 21:18 WBC 7.8 (3.8-10.6) k/uL RBC 6.00 H (3.80-5.40) m/uL Hgb 10.9 L (11.4-16.0) gm/dL Hct 37.6 (34.0-46.0) % MCV 62.7 L (80.0-100.0) fL MCH 18.2 L (25.0-35.0) pg MCHC 29.0 L (31.0-37.0) g/dL RDW 16.7 H (11.5-15.5) % Plt Count 248 (150-450) k/uL Neutrophils % 59 % Lymphocytes % 30 % Monocytes % 8 % Eosinophils % 2 % Basophils % 1 % Neutrophils # 4.6 (1.3-7.7) k/uL Lymphocytes # 2.3 (1.0-4.8) k/uL Monocytes # 0.6 (0-1.0) k/uL Eosinophils # 0.2 (0-0.7) k/uL Basophils # 0.1 (0-0.2) k/uL Hypochromasia Marked Anisocytosis Slight Microcytosis Marked Sodium 140 (137-145) mmol/L Potassium 4.1 (3.5-5.1) mmol/L Chloride 106 (98-107) mmol/L Carbon Dioxide 23 (22-30) mmol/L Anion Gap 11 mmol/L BUN 10 (7-17) mg/dL Creatinine 0.70 (0.52-1.04) mg/dL Est GFR (MDRD) Af Amer >60 (>60 ml/min/1.73 sqM) Est GFR (MDRD) Non-Af >60 (>60 ml/min/1.73 sqM) Glucose 95 (74-99) mg/dL Calcium 9.9 (8.4-10.2) mg/dL Urine Color Urine Appearance (Clear) Urine pH (5.0-8.0) Ur Specific [place] (1.001-1.035) Urine Protein (Negative) Urine Glucose (UA) (Negative) Urine Ketones (Negative) Urine Blood (Negative) Urine Nitrite (Negative) Urine Bilirubin (Negative) Urine Urobilinogen (<2.0) mg/dL Ur Leukocyte Esterase (Negative) Urine RBC (0-5) /hpf Urine WBC (0-5) /hpf Ur Squamous Epith Cells (0-4) /hpf Amorphous Sediment (None) /hpf Urine HCG, Qual Not Detected (Not Detectd) 04/01/17 Range/Units 21:18 WBC (3.8-10.6) k/uL RBC (3.80-5.40) m/uL Hgb (11.4-16.0) gm/dL Hct (34.0-46.0) % MCV (80.0-100.0) fL MCH (25.0-35.0) pg MCHC (31.0-37.0) g/dL RDW (11.5-15.5) % Plt Count (150-450) k/uL Neutrophils % % Lymphocytes % % Monocytes % % Eosinophils % % Basophils % % Neutrophils # (1.3-7.7) k/uL Lymphocytes # (1.0-4.8) k/uL Monocytes # (0-1.0) k/uL Eosinophils # (0-0.7) k/uL Basophils # (0-0.2) k/uL Hypochromasia Anisocytosis Microcytosis Sodium (137-145) mmol/L Potassium (3.5-5.1) mmol/L Chloride (98-107) mmol/L Carbon Dioxide (22-30) mmol/L Anion Gap mmol/L BUN (7-17) mg/dL Creatinine (0.52-1.04) mg/dL Est GFR (MDRD) Af Amer (>60 ml/min/1.73 sqM) Est GFR (MDRD) Non-Af (>60 ml/min/1.73 sqM) Glucose (74-99) mg/dL Calcium (8.4-10.2) mg/dL Urine Color Light Yellow Urine Appearance Cloudy H (Clear) Urine pH 7.0 (5.0-8.0) Ur Specific [place] 1.006 (1.001-1.035) Urine Protein Negative (Negative) Urine Glucose (UA) Negative (Negative) Urine Ketones Negative (Negative) Urine Blood Moderate H (Negative) Urine Nitrite Negative (Negative) Urine Bilirubin Negative (Negative) Urine Urobilinogen 3.0 (<2.0) mg/dL Ur Leukocyte Esterase Negative (Negative) Urine RBC <1 (0-5) /hpf Urine WBC 3 (0-5) /hpf Ur Squamous Epith Cells 6 H (0-4) /hpf Amorphous Sediment Few H (None) /hpf Urine HCG, Qual (Not Detectd) Disposition Clinical Impression: Migraine, Anemia Disposition: HOME SELF-CARE Condition: Good Instructions: Migraine Headache (ED), Anemia (ED) Additional Instructions: Patient has a take the iron supplement as directed. Recommended close follow- up with primary care provider. Return to emergency department if any alarming signs or symptoms occur. Prescriptions: Ferrous Sulfate [Iron] 325 mg PO DAILY #30 tablet Referrals: None,Stated [Primary Care Provider] - 1-2 days Malini Tate MD [STAFF PHYSICIAN] - 1-2 days Willam Ibarra MD [STAFF PHYSICIAN] - 1-2 days Time of Disposition: 22:34
[2017-04-01 22:48] VITALS: BP 112/64; PULSE 95; RESP 19; TEMP 98.3
== END 2017-04-01 22:48 | disposition home or self-care (01) ==
LOC: EC 19:21
DX: G43.909 Migraine, unspecified, not intractable, without status migrainosus (principal); D64.9 Anemia, unspecified; M54.2 Cervicalgia; Z87.891 Personal history of nicotine dependence; Z88.8 Allergy status to other drugs, medicaments and biological substances; Z91.010 Allergy to peanuts; Z91.018 Allergy to other foods
CPT/HCPCS: 36415; 80048; 85025; 81001; 81025; 99284; 96374; 96375 ×3; 96361; J1200; J2360; J2765; J1885

== ENCOUNTER 2017-05-01 22:03 | Emergency (ER) | payer OTHER ==
[2017-05-01 22:09] VITALS: PULSE 88; RESP 18
[2017-05-01] MEDS ORDERED: SODIUM CHLORIDE 0.9% 2,000 ML IV STA (22:35)
[2017-05-01] MEDS ORDERED: ONDANSETRON 4 MG/2 ML VIAL IVP STA (22:35)
--- NOTE | 2017-05-01 22:41 | ED ---
Nausea/Vomiting/Diarrhea HPI - General Chief complaint: Nausea/Vomiting/Diarrhea Stated complaint: Vomiting Time Seen by Provider: 05/01/17 22:35 Source: patient, RN notes reviewed Mode of arrival: ambulatory Limitations: no limitations - History of Present Illness Initial comments: This a 21-year-old female presents emergency Department chief complaint of nausea vomiting and slight diarrhea. Patient states symptoms are most started today. She does admit to some nausea over the last few days but states around noon she developed vomiting states his been recurrent. She states her chemistries drinks she vomits. Patient denies any hematemesis or or coffee- ground emesis. She denies any dysuria hematuria. She states she is clear. She does not believe she is . She denies any vaginal bleeding no vaginal discharge. She states she has some mild, cramping - Related Data Previous Rx's Medication Instructions Recorded Ferrous Sulfate [Iron] 325 mg PO DAILY #30 tablet 04/01/17 Ondansetron Odt [Zofran Odt] 4 mg PO Q8HR PRN #10 tab 05/01/17 Allergies Allergy/AdvReac Type Severity Reaction Status Date / Time peanut [Peanut Butter] Allergy Anaphylaxis Verified 05/01/17 22:09 peanut oil Allergy Rash/Hives Verified 05/01/17 22:09 tree nut [Nut] Allergy Rash/Hives Verified 05/01/17 22:09 atomoxetine HCl AdvReac Headache Verified 05/01/17 22:09 [From Strattera] Review of Systems ROS Statement: Those systems with pertinent positive or pertinent negative responses have been documented in the HPI. ROS Other: All systems not noted in ROS Statement are negative. Past Medical History Past Medical History: Asthma Additional Past Medical History / Comment(s): Migraines, anemia, enlarged spleen History of Any Multi-Drug Resistant Organisms: None Reported Past Surgical History: Adenoidectomy, Tonsillectomy Additional Past Surgical History / Comment(s): Cyst out of left shoulder Past Psychological History: Anxiety, Bipolar, Depression Smoking Status: Former smoker Past Alcohol Use History: Occasional Past Drug Use History: None Reported General Exam Limitations: no limitations General appearance: alert, in no apparent distress Head exam: Present: atraumatic, normocephalic, normal inspection Respiratory exam: Present: normal lung sounds bilaterally. Absent: respiratory distress, wheezes, rales, rhonchi, stridor Cardiovascular Exam: Present: regular rate, normal rhythm, normal heart sounds. Absent: systolic murmur, diastolic murmur, rubs, gallop, clicks GI/Abdominal exam: Present: soft, normal bowel sounds. Absent: distended, tenderness, guarding, rebound, rigid Back exam: Absent: CVA tenderness (R), CVA tenderness (L) Neurological exam: Present: alert, oriented X3, CN II-XII intact Skin exam: Present: warm, dry, intact, normal color. Absent: rash Course Vital Signs 05/01/17 22:07 Temperature 98.1 F Pulse Rate 88 Respiratory 18 Rate Blood Pressure 131/80 O2 Sat by Pulse 98 Oximetry Medical Decision Making - Medical Decision Making 21-year-old female presented for nausea vomiting and slight diarrhea. Patient feels improvement IV fluids and antiemetics. Patient lab work reviewed essentially unremarkable from her baseline. She does have some underlying anemia. Patient abdomen essentially nontender though she complains of generalized abdominal discomfort. Patient will be discharged at this time with Zofran advised to stick with clear liquid diet and progress as tolerated. - Lab Data Result diagrams: 05/01/17 22:55 05/01/17 22:55 Lab Results 05/01/17 05/01/17 05/01/17 Range/Units 22:55 22:55 23:15 WBC 10.8 H (3.8-10.6) k/uL RBC 6.06 H (3.80-5.40) m/uL Hgb 11.1 L (11.4-16.0) gm/dL Hct 39.3 (34.0-46.0) % MCV 64.8 L (80.0-100.0) fL MCH 18.3 L (25.0-35.0) pg MCHC 28.3 L (31.0-37.0) g/dL RDW 15.2 (11.5-15.5) % Plt Count 285 (150-450) k/uL Neutrophils % 78 % Lymphocytes % 15 % Monocytes % 5 % Eosinophils % 1 % Basophils % 0 % Neutrophils # 8.4 H (1.3-7.7) k/uL Lymphocytes # 1.6 (1.0-4.8) k/uL Monocytes # 0.5 (0-1.0) k/uL Eosinophils # 0.1 (0-0.7) k/uL Basophils # 0.1 (0-0.2) k/uL Hypochromasia Marked Microcytosis Marked Sodium 142 (137-145) mmol/L Potassium 3.8 (3.5-5.1) mmol/L Chloride 107 (98-107) mmol/L Carbon Dioxide 25 (22-30) mmol/L Anion Gap 10 mmol/L BUN 7 (7-17) mg/dL Creatinine 0.70 (0.52-1.04) mg/dL Est GFR (MDRD) Af Amer >60 (>60 ml/min/1.73 sqM) Est GFR (MDRD) Non-Af >60 (>60 ml/min/1.73 sqM) Glucose 101 H (74-99) mg/dL Calcium 9.9 (8.4-10.2) mg/dL Total Bilirubin 0.4 (0.2-1.3) mg/dL AST 18 (14-36) U/L ALT 36 (9-52) U/L Alkaline Phosphatase 80 (38-126) U/L Total Protein 7.1 (6.3-8.2) g/dL Albumin 4.2 (3.5-5.0) g/dL Amylase 61 (30-110) U/L Lipase 92 (23-300) U/L Urine Color Urine Appearance (Clear) Urine pH (5.0-8.0) Ur Specific [place] (1.001-1.035) Urine Protein (Negative) Urine Glucose (UA) (Negative) Urine Ketones (Negative) Urine Blood (Negative) Urine Nitrite (Negative) Urine Bilirubin (Negative) Urine Urobilinogen (<2.0) mg/dL Ur Leukocyte Esterase (Negative) Urine RBC (0-5) /hpf Urine WBC (0-5) /hpf Ur Squamous Epith Cells (0-4) /hpf Amorphous Sediment (None) /hpf Urine Bacteria (None) /hpf Hyaline Casts (0-2) /lpf Urine Mucus (None) /hpf Urine HCG, Qual Not Detected (Not Detectd) 05/01/17 Range/Units 23:15 WBC (3.8-10.6) k/uL RBC (3.80-5.40) m/uL Hgb (11.4-16.0) gm/dL Hct (34.0-46.0) % MCV (80.0-100.0) fL MCH (25.0-35.0) pg MCHC (31.0-37.0) g/dL RDW (11.5-15.5) % Plt Count (150-450) k/uL Neutrophils % % Lymphocytes % % Monocytes % % Eosinophils % % Basophils % % Neutrophils # (1.3-7.7) k/uL Lymphocytes # (1.0-4.8) k/uL Monocytes # (0-1.0) k/uL Eosinophils # (0-0.7) k/uL Basophils # (0-0.2) k/uL Hypochromasia Microcytosis Sodium (137-145) mmol/L Potassium (3.5-5.1) mmol/L Chloride (98-107) mmol/L Carbon Dioxide (22-30) mmol/L Anion Gap mmol/L BUN (7-17) mg/dL Creatinine (0.52-1.04) mg/dL Est GFR (MDRD) Af Amer (>60 ml/min/1.73 sqM) Est GFR (MDRD) Non-Af (>60 ml/min/1.73 sqM) Glucose (74-99) mg/dL Calcium (8.4-10.2) mg/dL Total Bilirubin (0.2-1.3) mg/dL AST (14-36) U/L ALT (9-52) U/L Alkaline Phosphatase (38-126) U/L Total Protein (6.3-8.2) g/dL Albumin (3.5-5.0) g/dL Amylase (30-110) U/L Lipase (23-300) U/L Urine Color Yellow Urine Appearance Clear (Clear) Urine pH 5.0 (5.0-8.0) Ur Specific [place] 1.019 (1.001-1.035) Urine Protein Negative (Negative) Urine Glucose (UA) Negative (Negative) Urine Ketones Negative (Negative) Urine Blood Moderate H (Negative) Urine Nitrite Negative (Negative) Urine Bilirubin Negative (Negative) Urine Urobilinogen 2.0 (<2.0) mg/dL Ur Leukocyte Esterase Negative (Negative) Urine RBC <1 (0-5) /hpf Urine WBC 1 (0-5) /hpf Ur Squamous Epith Cells 5 H (0-4) /hpf Amorphous Sediment Rare H (None) /hpf Urine Bacteria Rare H (None) /hpf Hyaline Casts 2 (0-2) /lpf Urine Mucus Few H (None) /hpf Urine HCG, Qual (Not Detectd) Disposition Clinical Impression: Gastroenteritis Disposition: HOME SELF-CARE Condition: Stable Instructions: Acute Nausea and Vomiting (ED) Additional Instructions: Please return to the Emergency Department if symptoms worsen or any other concerns. Prescriptions: Ondansetron Odt [Zofran Odt] 4 mg PO Q8HR PRN #10 tab PRN Reason: Nausea Referrals: None,Stated [Primary Care Provider] - 1-2 days Time of Disposition: 23:51
[2017-05-01 23:15] LABS: Basophils # (A) 0.1 k/uL (0-0.2); Basophils % (A) 0 %; Eosinophils # (A) 0.1 k/uL (0-0.7); Eosinophils % (A) 1 %; HCT 39.3 % (34.0-46.0); HGB 11.1 gm/dL (11.4-16.0); Hypochromasia Marked; Lymphocytes # (A) 1.6 k/uL (1.0-4.8); Lymphocytes % (A) 15 %; MCH 18.3 pg (25.0-35.0); MCHC 28.3 g/dL (31.0-37.0); MCV 64.8 fL (80.0-100.0); Mean Platelet Volume 6.4; Microcytosis Marked; Monocytes # (A) 0.5 k/uL (0-1.0); Monocytes % (A) 5 %; Neutrophils # (A) 8.4 k/uL (1.3-7.7); Neutrophils % (A) 78 %; Platelet Count 285 k/uL (150-450); RBC 6.06 m/uL (3.80-5.40); RDW 15.2 % (11.5-15.5); WBC 10.8 k/uL (3.8-10.6)
[2017-05-01 23:18] LABS: ALT 36 U/L (9-52); AST 18 U/L (14-36); Albumin 4.2 g/dL (3.5-5.0); Alkaline Phosphatase 80 U/L (38-126); Amylase 61 U/L (30-110); Anion Gap 10 mmol/L; Blood Urea Nitrogen 7 mg/dL (7-17); Calcium 9.9 mg/dL (8.4-10.2); Carbon Dioxide 25 mmol/L (22-30); Chloride 107 mmol/L (98-107); Glucose 101 mg/dL (74-99); Lipase 92 U/L (23-300); Potassium 3.8 mmol/L (3.5-5.1); Sodium 142 mmol/L (137-145); Total Bilirubin 0.4 mg/dL (0.2-1.3); Total Protein 7.1 g/dL (6.3-8.2)
[2017-05-01 23:41] LABS: Amorphous Sediment,Urine Rare /hpf; Appearance,Urine Clear (Clear); Bacteria,Urine Rare /hpf; Bilirubin,Urine Negative (Negative); Blood,Urine Moderate (Negative); Color,Urine Yellow; Glucose,Urine (UA) Negative (Negative); Hyaline Casts,Urine 2 /lpf (0-2); Ketones,Urine Negative (Negative); Leukocyte Esterase,Urine Negative (Negative); Mucus,Urine Few /hpf; Nitrite,Urine Negative (Negative); Protein,Urine Negative (Negative); RBC,Urine <1 /hpf (0-5); Specific Gravity,Urine 1.019 (1.001-1.035); Squamous Epithelial Cell,Urine 5 /hpf (0-4); WBC,Urine 1 /hpf (0-5)
[2017-05-02 00:49] VITALS: BP 148/92; TEMP 98.6
== END 2017-05-02 01:01 | disposition home or self-care (01) ==
LOC: EC 22:03
DX: K52.9 Noninfective gastroenteritis and colitis, unspecified (principal); D64.9 Anemia, unspecified; Z87.891 Personal history of nicotine dependence; Z88.8 Allergy status to other drugs, medicaments and biological substances; Z91.010 Allergy to peanuts; Z91.018 Allergy to other foods
CPT/HCPCS: 36415; 80053; 82150; 83690; 85025; 81001; 81025; 99284; 96374; 96361 ×2; J2405

== ENCOUNTER 2017-05-04 20:52 | Emergency (ER) | payer OTHER ==
[2017-05-04] MEDS ORDERED: IBUPROFEN ORAL SUSP 100 MG/5 ML CUP PO ONE (22:37)
--- NOTE | 2017-05-04 22:38 | XR ---
EXAMINATION TYPE: XR chest 2V DATE OF EXAM: 05/04/2017 COMPARISON: 11/21/2015 HISTORY: Chest pain TECHNIQUE: Frontal and lateral views of the chest are obtained. FINDINGS: Heart and mediastinum are normal. Lungs are clear. Diaphragm is normal. Bony thorax appear s normal. IMPRESSION: Normal chest. No change.
--- NOTE | 2017-05-04 23:44 | ED ---
Chest Pain HPI - General Chief Complaint: Shortness of Breath Stated Complaint: Chest pain Time Seen by Provider: 05/04/17 22:27 Source: patient Mode of arrival: ambulatory Limitations: no limitations - History of Present Illness Initial Comments: 21-year-old female patient presented to the emergency department today for evaluation of upper chest pain. Patient states that for the last 6 hours she has been having upper chest pain. She describes the pain as sharp, stabbing, and a pressure type pain. She states that the pain increases with movement and with deep breathing. She states it hurts worse when she presses over the area. She denies any recent injuries, falls, or new activity. She denies any current nausea or vomiting. Denies any sweats with this. Denies any shortness of breath. She does report that she was seen and evaluated here a couple of days ago after having vomiting and diarrhea. She denies any recent cough, congestion, or hemoptysis. She denies any use of oral contraceptives. Denies any long car rides or flights. She denies any history of DVT or PE. She denies any recent surgeries. Patient denies any recent rash, fever, chills, abdominal pain, diarrhea, constipation, back pain, numbness, tingling, dizziness , weakness, hematuria, dysuria, urinary urgency, urinary frequency, headache, visual changes, or any other complaints. - Related Data Home Medications Medication Instructions Recorded Confirmed No Known Home Medications [No 05/04/17 05/04/17 Known Home Medications] Allergies Allergy/AdvReac Type Severity Reaction Status Date / Time peanut [Peanut Butter] Allergy Anaphylaxis Verified 05/04/17 22:42 peanut oil Allergy Anaphylaxis Verified 05/04/17 22:43 tree nut [Nut] Allergy Anaphylaxis Verified 05/04/17 22:43 atomoxetine HCl AdvReac Headache Verified 05/04/17 22:42 [From Strattera] Review of Systems ROS Statement: Those systems with pertinent positive or pertinent negative responses have been documented in the HPI. ROS Other: All systems not noted in ROS Statement are negative. EKG Findings - EKG Comments: EKG Findings:: EKG obtained at 3 shows sinus tachycardia with nonspecific T- wave abnormality. The jugular rate is 102, [place] interval 116, QR buddhist 74, QT 344, QTC 448. Past Medical History Past Medical History: Asthma Additional Past Medical History / Comment(s): Migraines, anemia, enlarged spleen History of Any Multi-Drug Resistant Organisms: None Reported Past Surgical History: Adenoidectomy, Tonsillectomy Additional Past Surgical History / Comment(s): Cyst out of left shoulder Past Psychological History: Anxiety, Bipolar, Depression Smoking Status: Former smoker Past Alcohol Use History: Occasional Past Drug Use History: None Reported General Exam Limitations: no limitations General appearance: alert, in no apparent distress, other (This is a well- developed, well-nourished 21-year-old female patient in no acute distress. Vital signs upon presentation her to 100F, pulse 97, respirations 18, blood pressure 133/84, pulse ox 99% on room air.) Eye exam: Present: normal appearance, PERRL, EOMI. Absent: scleral icterus, conjunctival injection, periorbital swelling ENT exam: Present: normal exam, normal oropharynx, mucous membranes moist, TM's normal bilaterally Neck exam: Present: normal inspection. Absent: tenderness, meningismus, lymphadenopathy Respiratory exam: Present: normal lung sounds bilaterally, chest wall tenderness (Anterior chest wall tenderness). Absent: respiratory distress, wheezes, rales, rhonchi, stridor, accessory muscle use Cardiovascular Exam: Present: regular rate, normal rhythm, normal heart sounds. Absent: systolic murmur, diastolic murmur, rubs, gallop, clicks GI/Abdominal exam: Present: soft, normal bowel sounds. Absent: distended, tenderness, guarding, rebound, rigid Neurological exam: Present: alert, oriented X3, CN II-XII intact Psychiatric exam: Present: normal affect, normal mood Skin exam: Present: warm, dry, intact, normal color. Absent: rash Course Vital Signs 05/04/17 05/05/17 20:56 00:07 Temperature 100.0 F H 98.5 F Pulse Rate 97 85 Respiratory 18 17 Rate Blood Pressure 133/84 117/56 O2 Sat by Pulse 99 99 Oximetry [facility] 21-year-[facility] female patient presented to the emergency department today with complaints of upper chest pain. Patient is reproducible upon palpation, increases with patient movement, and increases with deep breathing. Physical examination is unremarkable. EKG did reveal sinus tachycardia, patient did have T-wave inversion in a few leads. Chest x-ray was negative for any acute cardiopulmonary process. Lungs are clear to auscultation. Pulmonary embolism is felt to be unlikely due to a Perc score of 0. I did discuss findings with the patient. I informed her of the T-wave inversion on her EKG and instructed her to follow-up with the primary care physician for further evaluation of this. I did give her ibuprofen here in the department. She is feeling somewhat better prior to discharge. She is instructed to return here immediately for any new, worsening, or concerning symptoms. She verbalizes understanding and agrees with this plan. Disposition Clinical Impression: Costochondritis, Chest pain, Inverted T wave Disposition: HOME SELF-CARE Condition: Good Instructions: Chest Pain (ED), Costochondritis (ED) Additional Instructions: Use [id number] ibuprofen for pain control. Take this 3 times per day with food. Follow-up with your primary care physician for further evaluation and repeat EKG testing. Return here immediately for any new, worsening, or concerning symptoms. Referrals: None,Stated [Primary Care Provider] - 1-2 days Time of Disposition: 23:44
[2017-05-05 23:14] VITALS: BP 117/56; PULSE 85; RESP 17; TEMP 98.5
== END 2017-05-05 00:09 | disposition home or self-care (01) ==
LOC: EC 20:52
DX: M94.0 Chondrocostal junction syndrome [Tietze] (principal); R94.31 Abnormal electrocardiogram [ECG] [EKG]; R00.0 Tachycardia, unspecified; J45.909 Unspecified asthma, uncomplicated; Z91.010 Allergy to peanuts; Z91.018 Allergy to other foods; Z88.8 Allergy status to other drugs, medicaments and biological substances; Z87.891 Personal history of nicotine dependence
CPT/HCPCS: 71046; 93005; 99285

== ENCOUNTER 2017-05-15 22:22 | Emergency (ER) | payer OTHER ==
[2017-05-15 22:27] VITALS: BP 129/75; PULSE 87; RESP 18; TEMP 98
--- NOTE | 2017-05-15 23:09 | ED ---
Chest Pain HPI - General Chief Complaint: Chest Pain Stated Complaint: Chest pain Time Seen by Provider: 05/15/17 22:45 Source: patient, RN notes reviewed Mode of arrival: ambulatory Limitations: no limitations - History of Present Illness Initial Comments: This is a 21-year-old female who presents to the emergency department with chief complaint of chest pain. Patient states that she has been having upper central chest pain for the past 2-3 weeks. She states that pain is positional and that chest is tender to touch. She denies any shortness of breath. She states that the pain is sharp and stabbing. She denies any recent travel. She denies any recent surgeries. She denies oral contraceptive use. She denies tobacco use. She denies any history of DVT or pulmonary embolism. She denies any coagulation disorders. Patient was seen here on May 04 with the same complaint. EKG revealed inverted T waves but no evidence for acute NH or pulmonary embolism. Chest x-ray revealed no acute abnormalities. Patient was discharged home with diagnosis of costochondritis. Denies any new symptoms since that time. Denies fever, chills, shortness of breath, abdominal pain, nausea or vomiting, constipation or diarrhea, dysuria or hematuria, numbness or tingling, headache or vision changes. - Related Data Home Medications Medication Instructions Recorded Confirmed No Known Home Medications [No 05/04/17 05/15/17 Known Home Medications] Allergies Allergy/AdvReac Type Severity Reaction Status Date / Time peanut [Peanut Butter] Allergy Anaphylaxis Verified 05/15/17 22:28 peanut oil Allergy Anaphylaxis Verified 05/15/17 22:28 tree nut [Nut] Allergy Anaphylaxis Verified 05/15/17 22:28 atomoxetine HCl AdvReac Headache Verified 05/15/17 22:28 [From Strattera] Review of Systems ROS Statement: Those systems with pertinent positive or pertinent negative responses have been documented in the HPI. ROS Other: All systems not noted in ROS Statement are negative. EKG Findings - EKG Comments: EKG Findings:: EKG at 22:30:17 revealed normal sinus rhythm. Ventricular rate 93 bpm, MI interval 130, QRS duration 76, QT/QTC 346/430. Reviewed by myself and Dr. Bae. Past Medical History Past Medical History: Asthma Additional Past Medical History / Comment(s): Migraines, anemia, enlarged spleen History of Any Multi-Drug Resistant Organisms: None Reported Past Surgical History: Adenoidectomy, Tonsillectomy Additional Past Surgical History / Comment(s): Cyst out of left shoulder Past Psychological History: Anxiety, Bipolar, Depression Smoking Status: Former smoker Past Alcohol Use History: Occasional Past Drug Use History: None Reported General Exam - General Exam Comments Initial Comments: General: Awake and alert, well-developed; in no apparent distress. Does not appear acutely ill. HEENT: Head atraumatic, normocephalic. Pupils are equal, round and reactive to light. Extraocular movements intact. Oropharynx moist without erythema or exudate. Neck: Supple. Normal ROM. Cardiovascular: Regular rate and rhythm. No murmurs, rubs or gallops. Chest symmetrical. Tenderness on palpation of upper central chest over sternum. Respiratory: Lungs clear to auscultation bilaterally. No wheezes, rales or rhonchi. Normal respiratory effort with no use of accessory muscles. Abdomen: Soft, non-tender, non-distended. No rigidity, rebound or guarding. Normal bowel sounds in all 4 quadrants. Musculoskeletal: Normal ROM, no tenderness bilateral upper and lower extremities. Ambulating normally. Skin: [place], warm and dry without rashes or lesions. Neurological: Alert and oriented x3. CN II-XII grossly intact. Speech is fluent and answers are appropriate. No focal neuro deficits. Psychiatric: Normal mood and affect. No overt signs of depression or anxiety noted. Limitations: no limitations Course Vital Signs 05/15/17 22:26 Temperature 98 F Pulse Rate 87 Respiratory 18 Rate Blood Pressure 129/75 O2 Sat by Pulse 99 Oximetry Chest Pain MDM - MDM This is a 21-year-old female who presents to the emergency department with chief complaint of chest pain. Previous documentation was reviewed. Patient has tenderness on palpation of chest wall. EKG revealed a normal sinus rhythm. Patient has no risk factors for acute DVT or pulmonary embolism. She has a PERC score of 0. Pain is positional and increases with movement. It appears to be related to a musculoskeletal issue. Patient will be discharged home. She is in no acute distress. She is in agreement and voices understanding. All questions were answered. Disposition Clinical Impression: Chest pain Disposition: HOME SELF-CARE Condition: Good Instructions: Costochondritis (ED), Chest Pain (ED) Additional Instructions: Please follow up with primary care provider within 1-2 days. Return to emergency department if symptoms should worsen or any concerns arise. Referrals: None,Stated [Primary Care Provider] - 1-2 days Yordan Pantoja MD [STAFF PHYSICIAN] - 1-2 days Time of Disposition: 23:09
== END 2017-05-15 23:17 | disposition home or self-care (01) ==
LOC: EC 22:22
DX: R07.89 Other chest pain (principal); Z87.891 Personal history of nicotine dependence; Z91.010 Allergy to peanuts; Z91.018 Allergy to other foods; Z88.8 Allergy status to other drugs, medicaments and biological substances
CPT/HCPCS: 93005; 99284

== ENCOUNTER 2017-11-01 18:11 | Emergency (ER) | payer OTHER ==
[2017-11-01 18:18] VITALS: BP 103/69; PULSE 93; RESP 18; TEMP 98.3
--- NOTE | 2017-11-01 18:29 | ED ---
Head Injury HPI - General Chief complaint: Head Injury Stated complaint: HEAD INJURY FROM FALL, 9 WEEKS PREG Time Seen by Provider: 11/01/17 18:21 Source: patient, RN notes reviewed Mode of arrival: ambulatory Limitations: no limitations - History of Present Illness Initial comments: This a 22-year-old female presents emergency Department chief complaint of head injury. Patient states she slipped on some odd hit her head on concrete when she was walking down an embankment. Patient did not lose conscious. She states she's had a headache since but has not tried taking any Tylenol. Patient didn't denies any blurred vision, double vision, nausea, vomiting, neck pain, confusion. She states pain gets worse sometimes with movement or she lays on her head. Patient denies any laceration. Patient states she does not have any difficulty walking or difficulty with movement. Patient states only reason she came is his mother told her that she should be seen because she was . She denies any vaginal bleeding vaginal discharge denies abdominal plain. Denies any injury to her abdomen. - Related Data Home Medications Medication Instructions Recorded Confirmed No Known Home Medications 05/04/17 05/15/17 Allergies/Adverse reactions: Allergies Allergy/AdvReac Type Severity Reaction Status Date / Time peanut [Peanut Butter] Allergy Anaphylaxis Verified 07/27/17 16:07 peanut oil Allergy Anaphylaxis Verified 07/27/17 16:07 tree nut [Nut] Allergy Anaphylaxis Verified 07/27/17 16:07 atomoxetine HCl AdvReac Headache Verified 07/27/17 16:07 [From Strattera] Review of Systems ROS Statement: Those systems with pertinent positive or pertinent negative responses have been documented in the HPI. ROS Other: All systems not noted in ROS Statement are negative. Past Medical History Past Medical History: Asthma Additional Past Medical History / Comment(s): Migraines, anemia, enlarged spleen History of Any Multi-Drug Resistant Organisms: None Reported Past Surgical History: Adenoidectomy, Tonsillectomy Additional Past Surgical History / Comment(s): Cyst out of left shoulder Past Psychological History: Anxiety, Bipolar, Depression Smoking Status: Former smoker Past Alcohol Use History: None Reported Past Drug Use History: None Reported General Exam Limitations: no limitations General appearance: alert, in no apparent distress Head exam: Present: atraumatic, normocephalic, normal inspection Eye exam: Present: normal appearance, PERRL, EOMI. Absent: scleral icterus, conjunctival injection, periorbital swelling ENT exam: Present: normal exam, normal oropharynx, mucous membranes moist, TM's normal bilaterally, normal external ear exam Neck exam: Present: normal inspection, full ROM. Absent: tenderness, meningismus, lymphadenopathy Respiratory exam: Present: normal lung sounds bilaterally. Absent: respiratory distress, wheezes, rales, rhonchi, stridor Cardiovascular Exam: Present: regular rate, normal rhythm, normal heart sounds. Absent: systolic murmur, diastolic murmur, rubs, gallop, clicks Extremities exam: Present: other (Upper extremity strength equal bilaterally neurovascular intact) Back exam: Present: normal inspection, full ROM. Absent: tenderness Neurological exam: Present: alert, oriented X3, CN II-XII intact, reflexes normal, other (Finger to nose intact bilaterally). Absent: motor sensory deficit Skin exam: Present: warm, dry, intact, normal color. Absent: rash Course Vital Signs 11/01/17 18:13 Temperature 98.3 F Pulse Rate 93 Respiratory 18 Rate Blood Pressure 103/69 O2 Sat by Pulse 99 Oximetry Medical Decision Making - Medical Decision Making 22-year-old female presented for fall, head injury. Patient fell on Wednesday she has a normal neuro exam at this time. There was no loss conscious during her fall. CT was offered. We discussed CT versus no CT at this time. She does agree that she does not feel that she needs a CT. She states she was told by her mother to be evaluated. Patient is advised take Tylenol as directed and return for any worsening symptoms. Disposition Clinical Impression: Contusion of scalp, Head injury Disposition: HOME SELF-CARE Condition: Stable Instructions: Concussion (ED) Additional Instructions: Please return to the Emergency Department if symptoms worsen or any other concerns. Is patient prescribed a controlled substance at d/c from ED?: No Referrals: None,Stated [Primary Care Provider] - 1-2 days Time of Disposition: 18:29
== END 2017-11-01 18:46 | disposition home or self-care (01) ==
LOC: EC 18:11
DX: O9A.211 Injury, poisoning and certain other consequences of external causes complicating pregnancy, first trimester (principal); S00.03XA Contusion of scalp, initial encounter; Z3A.09 9 weeks gestation of pregnancy; Z87.891 Personal history of nicotine dependence; Z91.010 Allergy to peanuts; Z91.018 Allergy to other foods; Z88.8 Allergy status to other drugs, medicaments and biological substances; W01.198A Fall on same level from slipping, tripping and stumbling with subsequent striking against other object, initial encounter; Y92.89 Other specified places as the place of occurrence of the external cause
CPT/HCPCS: 99283